=== PATIENT | male | born 1940 | race Caucasian/White ===

== ENCOUNTER 2018-05-13 10:17 | Inpatient (IN) | payer OTHER ==
[~2018-05-13] VITALS: Ht 162.6 cm; Wt 87.0 kg
[~2018-05-13 10:17] MED LIST: SODIUM CHLORIDE 0.9% 1000ML 1,000 ML IV SCH
--- NOTE | 2018-05-13 10:34 | DIAGNOSTIC IMAGING REPORT ---
HEAD WITHOUT CONTRAST (CT) CLINICAL HISTORY: 77 years-old Male presenting with STROKE SYMPTOMS. TECHNIQUE: Multidetector CT imaging of the head was performed without the use of intravenous contrast. IV contrast: None. A dose lowering technique was used consistent with the principles of ALARA (as low as reasonably achievable). COMPARISON: None. CT DOSE (mGy.cm): The estimated cumulative dose is 614.27 mGy.cm. FINDINGS: Orthodontic Technician Assistant topogram: Unremarkable. Ventricles and sulci normal in size. Brain parenchyma normal in appearance with preserved weinstein-white differentiation. No mass effect or midline shift. No hemorrhage or acute territorial infarct. No extra-axial fluid collection. Paranasal sinuses and mastoid air cells clear. Calvarium intact. IMPRESSION: 1. No acute intracranial abnormality. Electronically signed by: Tra Mendes M.D. 05/13/2018 10:33 AM Dictated Date/Time: 05/13/2018 10:31 AM
[2018-05-13 10:48] LABS: BASO % 0.3 %; BASO ABS # 0.02 K/uL (0-0.2); EOS % 0.2 %; EOS ABS # 0.01 K/uL (0-0.5); HEMATOCRIT 42.8 % (42-52); HEMOGLOBIN 14.2 g/dL (14.0-18.0); IG# 0.04 K/uL (0.00-0.02); LYMPH % 16.3 %; LYMPH ABS # 1.03 K/uL (1.2-3.4); MEAN CELL VOLUME 90.9 fL (80-100); MEAN CORPUSCULAR HEMOGLOBIN 30.1 pg (25-34); MEAN CORPUSCULAR HGB CONC 33.2 g/dl (32-36); MEAN PLATELET VOLUME 9.9 fL (7.4-10.4); MONO % 6.7 %; MONO ABS # 0.42 K/uL (0.11-0.59); NEUT % 75.9 %; NEUT ABS # 4.78 K/uL (1.4-6.5); PLATELET COUNT 232 K/uL (130-400); RED CELL DISTRIBUTION WIDTH CV 15.3 % (11.5-14.5); RED CELL DISTRIBUTION WIDTH SD 51.5 fL (36.4-46.3)
[2018-05-13 10:58] LABS: INR 0.9 (0.9-1.1); PTT PATIENT 26.9 SECONDS (21.0-31.0)
[2018-05-13] MEDS ORDERED: SET 2260-0500 IV ONE (11:00)
[2018-05-13] MEDS ORDERED: ALTEPLASE, RECOMBINANT INJ 72 MG in EMPTY BAG 0 ML IV ONE (11:00)
[2018-05-13] MEDS ORDERED: ALTEPLASE, RECOMBINANT INJ 8 MG in SYRINGE 0 ML IV ONE (11:00)
[2018-05-13] MEDS ORDERED: ASPIRIN 81 MG CHEW PO STA (11:09)
[2018-05-13 11:14] LABS: BLOOD UREA NITROGEN 17 mg/dl (7-18); CALCIUM 8.7 mg/dl (8.5-10.1); CARBON DIOXIDE 22 mmol/L (21-32); CKMB 6.3 ng/ml (0.5-3.6); CREATININE 1.21 mg/dl (0.60-1.40); GLUCOSE 172 mg/dl (70-99); POTASSIUM 4.4 mmol/L (3.5-5.1); SODIUM 139 mmol/L (136-145)
--- NOTE | 2018-05-13 11:27 | DIAGNOSTIC IMAGING REPORT ---
SINGLE VIEW CHEST CLINICAL HISTORY: Strokelike symptoms. FINDINGS: An AP, portable, upright chest radiograph is obtained. No prior studies are available for comparison at the time of dictation. The examination is degraded by portable technique and patient rotation. The heart is mildly enlarged and there is atherosclerotic calcification of the thoracic aorta. The pulmonary vasculature is noncongested. Patchy airspace consolidation is seen at both lung bases. No large pleural effusion or pneumothorax is seen. The skeletal structures are osteopenic. Arthritic change is noted in the shoulders and thoracic spine. IMPRESSION: 1. Cardiomegaly without radiographic evidence of congestive failure. 2. Patchy airspace consolidation is seen at both lung bases. This likely represents pneumonia/aspiration pneumonitis. Clinical correlation will be required and radiographic follow-up to resolution is recommended. Electronically signed by: Sergio Bui M.D. 05/13/2018 11:25 AM Dictated Date/Time: 05/13/2018 11:24 AM
[2018-05-13] MEDS ORDERED: INSU100I23 (11:34)
[2018-05-13] MEDS ORDERED: TAMS0.4C38 PO (11:37)
[2018-05-13] MEDS ORDERED: METF-841 PO (11:37)
[2018-05-13] MEDS ORDERED: ACAR50TA3 PO (11:37)
[2018-05-13] MEDS ORDERED: PIOG1TAB20 PO (11:37)
[2018-05-13 12:15] VITALS: O2SAT 95; Ht 162.6 cm; Wt 87.0 kg
[2018-05-13] MEDS ORDERED: PHARMACIST DISCHARGE MED REC CONSULT PRN (12:15)
--- NOTE | 2018-05-13 12:17 | History and Physical ---
History & Physical Date & Time of Service: May 13, 2018 at 12:17 Chief Complaint: Stroke Symptoms Primary Care Physician: No Doctor, Assigned History of Present Illness Source: patient, hospital records This is a 77yo M with a PMH of DM II and BPH who presents with confusion and altered mental status. Patient was in normal state of health this morning and commuted from [place] to [facility] without a problem. Suddenly, around 8:30 AM, patient felt confused and dizzy with slurred speech. Coworker called 911 and patient was evaluated in the ED with tele-stroke. Was initially found to have slight left-sided facial droop and right arm weakness but R arm weakness resolved. Per discussion with tele-stroke, order for tPa was discontinued and patient was given a full dose aspirin. Denies any lightheadedness, visual changes, difficulty swallowing, palpitations, chest pain , shortness of breath, motor weakness or difficulty with ambulation. Denies any personal history of stroke, heart disease or DVT/PE. Follows with Dr. Menchaca of [place]. Past Medical/Surgical History Medical Problems: (1) BPH (benign prostatic hyperplasia) Status: Chronic (2) Diabetes mellitus, type II Status: Chronic Social History Smoking Status: Never Smoker Alcohol Use: none Housing status: lives with significant other Occupational Status: employed Allergies Coded Allergies: Penicillins (Verified Allergy, Unknown, RASH, 05/13/18) Home Medications Scheduled Acarbose (Precose), 50 MG PO HS Insulin Glargine (Basaglar Kwikpen), 14 UNITS HS Metformin HCl (Metformin HCl ER), 1,000 MG PO BID Pioglitazone Hcl (Pioglitazone Hcl), 45 MG PO DAILY Tamsulosin Hcl (Flomax), 0.4 MG PO DAILY Review of Systems Ten systems reviewed and negative except as noted in the HPI. Physical Exam Vital Signs Date Time Temp Pulse Resp B/P (MAP) Pulse Ox O2 Delivery O2 Flow Rate FiO2 05/13/18 12:00 150/85 05/13/18 11:52 75 20 95 Room Air 05/13/18 11:31 137/79 05/13/18 11:22 84 21 94 Room Air 05/13/18 11:17 77 16 97 Room Air 05/13/18 11:02 165/80 05/13/18 10:47 73 16 95 Room Air 05/13/18 10:45 158/83 05/13/18 10:41 148/92 05/13/18 10:36 Room Air 05/13/18 10:34 82 05/13/18 10:27 162/90 05/13/18 10:17 36.6 75 20 162/90 94 Room Air General Appearance: WD/WN, no apparent distress, + mild distress (tearful intermittently) Head: normocephalic, atraumatic Eyes: normal inspection, PERRL, sclerae normal ENT: normal ENT inspection, hearing grossly normal, pharynx normal (moist mucous membranes ) Neck: supple, thyroid normal, trachea midline Respiratory/Chest: chest non-tender, lungs clear, normal breath sounds, no respiratory distress, no accessory muscle use Cardiovascular: regular rate, rhythm, no murmur, normal peripheral pulses Abdomen/GI: non tender, soft, no organomegaly Extremities/Musculoskelatal: normal inspection, no calf tenderness, no pedal edema, normal range of motion 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, no motor/sensory deficits, alert, normal mood/affect, oriented x 3, + facial droop (Slight left sided facial droop ), + pertinent finding (Expressive aphasia) Skin: normal color, warm/dry, no rash Diagnostics Laboratory Results Results Past 24 Hours Test 05/13/18 10:12 05/13/18 10:26 05/13/18 10:34 05/13/18 12:03 Range/Units White Blood Count 6.30 4.8-10.8 K/uL Red Blood Count 4.71 4.7-6.1 M/uL Hemoglobin 14.2 14.0-18.0 g/dL Hematocrit 42.8 42-52 % Mean Corpuscular Volume 90.9 80-100 fL Mean Corpuscular Hemoglobin 30.1 25-34 pg Mean Corpuscular Hemoglobin Concent 33.2 32-36 g/dl Platelet Count 232 130-400 K/uL Mean Platelet Volume 9.9 7.4-10.4 fL Neutrophils (%) (Auto) 75.9 % Lymphocytes (%) (Auto) 16.3 % Monocytes (%) (Auto) 6.7 % Eosinophils (%) (Auto) 0.2 % Basophils (%) (Auto) 0.3 % Neutrophils # (Auto) 4.78 1.4-6.5 K/uL Lymphocytes # (Auto) 1.03 1.2-3.4 K/uL Monocytes # (Auto) 0.42 0.11-0.59 K/uL Eosinophils # (Auto) 0.01 0-0.5 K/uL Basophils # (Auto) 0.02 0-0.2 K/uL RDW Standard Deviation 51.5 36.4-46.3 fL RDW Coefficient of Variation 15.3 11.5-14.5 % Immature Granulocyte % (Auto) 0.6 % Immature Granulocyte # (Auto) 0.04 0.00-0.02 K/uL Prothrombin Time 9.8 9.0-12.0 SECONDS Prothromb Time International Ratio 0.9 0.9-1.1 Activated Partial Thromboplast Time 26.9 21.0-31.0 SECONDS Partial Thromboplastin Ratio 1.0 Sodium Level 139 136-145 mmol/L Potassium Level 4.4 3.5-5.1 mmol/L Chloride Level 107 98-107 mmol/L Carbon Dioxide Level 22 21-32 mmol/L Anion Gap 10.0 3-11 mmol/L Blood Urea Nitrogen 17 7-18 mg/dl Creatinine 1.21 0.60-1.40 mg/dl Est Creatinine Clear Calc Drug Dose 51.7 ml/min Estimated GFR () 66.5 Estimated GFR (Non- 57.4 BUN/Creatinine Ratio 13.7 10-20 Random Glucose 172 70-99 mg/dl Calcium Level 8.7 8.5-10.1 mg/dl Magnesium Level 2.2 1.8-2.4 mg/dl Total Creatine Kinase 349 39-308 U/L Creatine Kinase MB 6.3 0.5-3.6 ng/ml Creatine Kinase MB Ratio 1.8 0-3.0 Troponin I < 0.015 0-0.045 ng/ml Bedside Glucose 149 70-99 mg/dl Diagnostic Radiology Head CT: IMPRESSION: 1. No acute intracranial abnormality. CXR: IMPRESSION: 1. Cardiomegaly without radiographic evidence of congestive failure. 2. Patchy airspace consolidation is seen at both lung bases. This likely represents pneumonia/aspiration pneumonitis. Clinical correlation will be required and radiographic follow-up to resolution is recommended. EKG Normal sinus rhythm at 81 bpm. Left bundle branch block. No prior EKG available Impression Assessment and Plan This is a 77yo M with a PMH of DM II and BPH who presents with confusion and altered mental status. Stroke like symptoms: -Evaluated by telestroke -- no tPa recommended -CT head without abnormalities -Given full dose aspirin in ED -Given Lipitor 40mg -MRI brain combo, echo w/ bubble study ordered -Discussed with neuro - CTA head/neck recommended -Initiate daily aspirin, plavix -Neuro checks -PT, OT, speech therapy evaluations -Fasting lipid profile in AM DM II: -A1c of 6.9 today -Hold home agents -SSI while in-patient -Lantus 5u BID -BSG AC HS BPH: -Continue Flomax DVT Ppx: Heparin SQ Code status: FULL PCP: Bernarda ([place]) Dispo: Admitted to telemetry. Discharge ordered place per stroke set. Patient seen in collaboration with Dr. Quintana. Please see addendum. Resuscitation Status VTE Prophylaxis Will order VTE Prophylaxis: Yes
[2018-05-13] MEDS ORDERED: CARBOHYDRATES FOR HYPOGLYCEMIA PO PRN (12:45)
[2018-05-13] MEDS ORDERED: GLUCOSE 10 TABS/TUBE PO PRN (12:45)
[2018-05-13] MEDS ORDERED: DEXTROSE 50% 50 ML SYR IV PRN (12:45)
[2018-05-13] MEDS ORDERED: GLUCAGON FOR INJ 1 MG VIAL SQ PRN (12:45)
[2018-05-13] MEDS ORDERED: PATIENT'S ALLERGY INFO NEEDS ENTERED SCH (12:45)
[2018-05-13] MEDS ORDERED: GLUCOSE 40% GEL 15 GM TUBE PO PRN (12:45)
[2018-05-13 12:49] LABS: HEMOGLOBIN A1C 6.9 % (4.5-5.6)
[2018-05-13 13:00] VITALS: BP 154/74; PULSE 71; TEMP 36.7; O2SAT 97
[2018-05-13] MEDS ORDERED: OPTIRAY 320 IV PRN (13:00)
[2018-05-13] MEDS ORDERED: CLOPIDOGREL BISULFATE 75 MG TAB PO ONE (13:00)
[2018-05-13 13:04] LABS: ALBUMIN 3.6 gm/dl (3.4-5.0); ALKALINE PHOSPHATASE 95 U/L (45-117); ALT/SGPT 26 U/L (12-78); AST/SGOT 27 U/L (15-37); TOTAL PROTEIN 7.1 gm/dl (6.4-8.2)
[2018-05-13] MEDS ORDERED: SODIUM CHLORIDE 0.9% 1000ML 1,000 ML IV SCH (13:45)
--- NOTE | 2018-05-13 13:57 | History and Physical ---
History & Physical Date of Service May 13, 2018. History & Physical This is a 77 year old male with a past medical history of insulin dependent DM2 and BPH - presents with confusion, altered mental status. 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 He was seen by his boss and ambulance was immediately called. As per ER notes, he had a L sided facial droop. During my exam, the facial droop resolved. During exam; he is having expressive aphasia, difficulty recalling events. He is tearful during exam and emotionally labile. No motor weakness on exam. Plan: Stroke Like Symptoms - Head CT negative on admission - stroke alert called; no tPA recommended - started on aspirin and Plavix - giving Lipitor 40mg - plan for further imagining, CTA head/neck as per neurology - MRI brain, echo ordered - check fasting lipid profile in AM Underlying CKD? - unsure if patient has kidney disease - with his diabetes, this is possibly chronic kidney disease - giving IVFs, monitor for fluid overload, monitor kidney function Insulin Dependent DM2 - well controlled, Ha1c is 6.9% - hold oral agents - change his home dose of Lantus 14 units HS to 5 units BID - insulin sliding scale - prior to discharge, patient should be on an KATHRYN-I BPH - Flomax DVT ppx - subq heparin FULL CODE
[2018-05-13] MEDS ORDERED: PNEUMOCOCCAL ADMINISTRATION CHARGE ONE (14:45)
[2018-05-13] MEDS ORDERED: PNEUMOCOCCAL POLYSACCHARIDES 25 MCG/0.5 ML VIAL/SYR IM. ONE (14:45)
--- NOTE | 2018-05-13 14:50 | ECHOCARDIOGRAM REPORT ---
*NOTICE TO RECEIVING CONSTITUTION PARTY AGENCY This information is strictly Confidential and protected under [place] law. [place] law prohibits you from making any further disclosure of this information unless further disclosure is expressly permitted by the written consent of the person to whom it pertains or is authorized by law. A general authorization for the release of medical or other information is not sufficient for this purpose. Hospital accepts no responsibility if the information is made available to any other person, INCLUDING THE PATIENT. Interpretation Summary * Name: MEGHAN RIVAS Study Date: 05/13/2018 01:00 PM BP: 150/85 mmHg * Patient Location: .2E\S\E212\S\1 HR: 73 * : 1940 (M/d/yyyy) Gender: Male Height: 64 in * Age: 77 yrs Ethnicity: CA Weight: 198 lb * Ordering Physician: Kourtney Hubbard * Referring Physician: Self, Referred * Performed By: Enid Wylie [facility] * * Reason For Study: CEREBRAL ISCHEMIA / EMBOLUS * BSA: 1.9 m2 * -- Conclusions -- * The left ventricle is normal in size. * There is mild concentric left ventricular hypertrophy. * The basal septum is thickened and angulated consistent with sigmoid septum. * Left ventricular systolic function is normal. * Grade I diastolic dysfunction, (abnormal relaxation pattern). * Septal motion is consistent with conduction abnormality. * There is akinesis and thinning of the basal inferior posterior wall with all other wall segments arsenio normally * Ejection Fraction = 50-55%. * Aortic valve sclerosis mild, without significant aortic valvular stenosis. * Trace aortic regurgitation. * There is trace mitral regurgitation. * The interatrial septum is intact with no evidence for an atrial septal defect. * Injection of contrast documented no interatrial shunt. Procedure Details * A complete two-dimensional transthoracic echocardiogram was performed (2D, M-mode, Doppler and color flow Doppler). * A saline contrast injection was performed to assess for cardiac shunting. * The injection was performed through an intravenous line in the right arm. * The attending nurse who injected the saline contrast was BRISEIDA MASON RN. * A total of 20 cc of agitated saline was given. Left Ventricle * The left ventricle is normal in size. * There is mild concentric left ventricular hypertrophy. * The basal septum is thickened and angulated consistent with sigmoid septum. * Left ventricular systolic function is normal. * Ejection Fraction = 50-55%. * Septal motion is consistent with conduction abnormality. * There is akinesis and thinning of the basal inferior posterior wall with all other wall segments arsenio normally Right Ventricle * The right ventricle is normal in size and function. Atria * The left atrial size is normal. * Right atrial size is normal. * The interatrial septum is intact with no evidence for an atrial septal defect. * Injection of contrast documented no interatrial shunt. Mitral Valve * The mitral valve anatomy is normal. * There is no mitral valve stenosis. * There is trace mitral regurgitation. Tricuspid Valve * The tricuspid valve anatomy is normal. * There is no tricuspid stenosis. * There is trace tricuspid regurgitation. * Doppler findings do not suggest pulmonary hypertension. Aortic Valve * The aortic valve is trileaflet. * Aortic valve sclerosis mild, without significant aortic valvular stenosis. * No hemodynamically significant valvular aortic stenosis. * Trace aortic regurgitation. Pulmonic Valve * The pulmonic valve is not well visualized. Great Vessels * The aortic root is normal size. Pericardium/Pleural * There is no pericardial effusion. Great Vessels * Normal inferior vena cava diameter and respiratory variation suggests normal central venous pressure. Left Ventricular Diastolic Function * Grade I diastolic dysfunction, (abnormal relaxation pattern). MMode 2D Measurements and Calculations IVSd 1.7 cm IVSs 1.6 cm LVIDd 4.6 cm LVIDs 3.6 cm LVPWd 1.5 cm LVPWs 2.0 cm IVS/LVPW 1.1 FS 21.8 % EDV(Teich) 96.6 ml ESV(Teich) 54.0 ml EF(Teich) 44.2 % EDV(cubed) 96.4 ml ESV(cubed) 46.1 ml EF(cubed) 52.1 % % IVS thick -9.97 % % LVPW thick 33.3 % LV mass(C)d 319.9 grams LV mass(C)dI 164.3 grams/m\S\2 LV mass(C)s 268.2 grams LV mass(C)sI 137.7 grams/m\S\2 SV(Teich) 42.7 ml SI(Teich) 21.9 ml/m\S\2 SV(cubed) 50.3 ml SI(cubed) 25.8 ml/m\S\2 Ao root diam 3.0 cm Ao root area 6.9 cm\S\2 LA dimension 3.9 cm LA/Ao 1.3 LVOT diam 2.0 cm LVOT area 3.2 cm\S\2 LVAd ap4 35.9 cm\S\2 LVLd ap4 9.0 cm EDV(MOD-sp4) 119.6 ml EDV(sp4-el) 121.3 ml LVAs ap4 23.2 cm\S\2 LVLs ap4 8.0 cm ESV(MOD-sp4) 57.9 ml ESV(sp4-el) 57.4 ml EF(MOD-sp4) 51.6 % EF(sp4-el) 52.7 % LVAd ap2 37.7 cm\S\2 LVLd ap2 8.9 cm EDV(MOD-sp2) 129.7 ml EDV(sp2-el) 135.3 ml LVAs ap2 22.3 cm\S\2 LVLs ap2 7.0 cm ESV(MOD-sp2) 61.6 ml ESV(sp2-el) 60.4 ml EF(MOD-sp2) 52.5 % EF(sp2-el) 55.4 % LVLd %diff -1.40 % EDV(MOD-bp) 121.4 ml LVLs %diff -14.68 % ESV(MOD-bp) 63.3 ml EF(MOD-bp) 47.9 % SV(MOD-sp4) 61.7 ml SI(MOD-sp4) 31.7 ml/m\S\2 SV(MOD-sp2) 68.1 ml SI(MOD-sp2) 35.0 ml/m\S\2 SV(MOD-bp) 58.1 ml SI(MOD-bp) 29.9 ml/m\S\2 SV(sp4-el) 64.0 ml SI(sp4-el) 32.8 ml/m\S\2 SV(sp2-el) 74.9 ml SI(sp2-el) 38.5 ml/m\S\2 Doppler Measurements and Calculations MV E max ryann 64.7 cm/sec MV A max ryann 104.3 cm/sec MV E/A 0.62 MV P1/2t max ryann 77.0 cm/sec MV P1/2t 58.2 msec MVA(P1/2t) 3.8 cm\S\2 MV dec slope 387.8 cm/sec\S\2 MV dec time 0.19 sec AI max ryann 452.0 cm/sec AI max PG 81.7 mmHg AI dec slope 241.2 cm/sec\S\2 AI P1/2t 548.9 msec
[2018-05-13] MEDS: HEPARIN SOD 5000 UNIT/0.5 ML CARP SQ SCH ×2 (15:02→21:19)
[2018-05-13] MEDS: ATORVASTATIN 40 MG TAB PO SCH (15:21)
[2018-05-13 16:15] VITALS: BP 148/76; PULSE 74; TEMP 37.1; O2SAT 95
[2018-05-13] MEDS: INSULIN ASPART 100 UNITS/ML 3 ML PEN SC SCH ×2 (17:02→20:57)
--- NOTE | 2018-05-13 17:45 | EMERGENCY ROOM VISIT NOTE ---
History Report prepared by Yissel: Candy Monk Under the Supervision of: Dr. Fareed Murguia M.D. First contact with patient: 10:12 Stated Complaint: STROKE SYMPTOMS History of Present Illness The patient is a 77 year old male who presents to the Emergency Room with complaints of sudden stroke symptoms starting 2 hours ago. The patient states that he was on his way to work for [employer] to [employer] when he all of a sudden noticed right sided weakness. He reports that he felt like he had difficulty getting his words out. He reports that his coworker called 911 at this time. He states that he was fine last night and this morning when he got up. He states that he had no issues driving until he felt weak. The patient denies a history of strokes, heart attacks, and cancer. Pt denies LOC, headache, fevers, chills, diaphoresis, visual changes, neck pain , chest pain, breathing difficulties, nausea, vomiting, abdominal pain, back pain, melena, hematochezia, urinary symptoms, numbness, lymphadenopathy, rash, or other complaints. Source of History: patient Onset: 2 hours ago Position: other (generalized) Quality: other (stroke symptoms) Timing: other (sudden) Associated Symptoms: + weakness Note: The patient complains of difficulty getting his words out. Review of Systems See HPI for pertinent positives and negatives. A total of ten systems were reviewed and were otherwise negative. Past Medical & Surgical Medical Problems: (1) BPH (benign prostatic hyperplasia) (2) Diabetes mellitus, type II Family History No pertinent family history Social History Marital Status: Housing Status: lives with significant other Occupation Status: employed Current/Historical Medications Scheduled Acarbose (Precose), 50 MG PO HS Insulin Glargine (Basaglar Kwikpen), 14 UNITS HS Metformin HCl (Metformin HCl ER), 1,000 MG PO BID Pioglitazone Hcl (Pioglitazone Hcl), 45 MG PO DAILY Tamsulosin Hcl (Flomax), 0.4 MG PO DAILY Allergies Coded Allergies: Penicillins (Verified Allergy, Unknown, RASH, 05/13/18) Physical Exam Vital Signs Date Time Temp Pulse Resp B/P (MAP) Pulse Ox O2 Delivery O2 Flow Rate FiO2 05/13/18 12:00 150/85 05/13/18 11:52 75 20 95 Room Air 05/13/18 11:31 137/79 05/13/18 11:22 84 21 94 Room Air 05/13/18 11:17 77 16 97 Room Air 05/13/18 11:02 165/80 05/13/18 10:47 73 16 95 Room Air 05/13/18 10:45 158/83 05/13/18 10:41 148/92 05/13/18 10:36 Room Air 05/13/18 10:34 82 05/13/18 10:27 162/90 05/13/18 10:17 36.6 75 20 162/90 94 Room Air Physical Exam GENERAL: Awake, alert, tired appearing, no distress HENT: Normocephalic, atraumatic. TM's normal. Oropharynx unremarkable. EYES: PERRL. EOMI. Normal conjunctiva. Sclera non-icteric. NECK: Supple. No nuchal rigidity. FROM. No bruit. RESPIRATORY: Breath sounds equal. No wheezes. No rhonchi. Normal respiratory effort. CARDIAC: Normal rate. Regular rhythm. No murmurs. No rubs. No JVD. GI: Soft, non distended. No tenderness to palpation. No rebound or guarding. No masses. RECTAL: Deferred. MUSCULOSKELETAL: Unremarkable. 1+ lower extremity edema. No discoloration. Gross motor strength symmetric. NEURO: Cranial nerves 2-12 grossly intact. Normal sensorium. No sensory deficits noted. Mild dysarthria. Weakness in the right arm, but no pronator drift. Slight left facial droop. SKIN: No rash or jaundice noted. LYMPH: No adenopathy. Medical Decision & Procedures ER Provider Diagnostic Interpretation: Radiology results as stated below per my review and radiologist interpretation: SINGLE VIEW CHEST CLINICAL HISTORY: Strokelike symptoms. FINDINGS: An AP, portable, upright chest radiograph is obtained. No prior studies are available for comparison at the time of dictation. The examination is degraded by portable technique and patient rotation. The heart is mildly enlarged and there is atherosclerotic calcification of the thoracic aorta. The pulmonary vasculature is noncongested. Patchy airspace consolidation is seen at both lung bases. No large pleural effusion or pneumothorax is seen. The skeletal structures are osteopenic. Arthritic change is noted in the shoulders and thoracic spine. IMPRESSION: 1. Cardiomegaly without radiographic evidence of congestive failure. 2. Patchy airspace consolidation is seen at both lung bases. This likely represents pneumonia/aspiration pneumonitis. Clinical correlation will be required and radiographic follow-up to resolution is recommended. Electronically signed by: Sergio Bui M.D. 05/13/2018 11:25 AM Dictated Date/Time: 05/13/2018 11:24 AM HEAD WITHOUT CONTRAST (CT) CLINICAL HISTORY: 77 years-old Male presenting with STROKE SYMPTOMS. TECHNIQUE: Multidetector CT imaging of the head was performed without the use of intravenous contrast. IV contrast: None. A dose lowering technique was used consistent with the principles of ALARA (as low as reasonably achievable). COMPARISON: None. CT DOSE (mGy.cm): The estimated cumulative dose is 614.27 mGy.cm. FINDINGS: Disability Services Coordinator topogram: Unremarkable. Ventricles and sulci normal in size. Brain parenchyma normal in appearance with preserved weinstein-white differentiation. No mass effect or midline shift. No hemorrhage or acute territorial infarct. No extra-axial fluid collection. Paranasal sinuses and mastoid air cells clear. Calvarium intact. IMPRESSION: 1. No acute intracranial abnormality. Electronically signed by: Tra Mendes M.D. 05/13/2018 10:33 AM Dictated Date/Time: 05/13/2018 10:31 AM Laboratory Results 05/13/18 10:26 Red Blood Count 4.71, Mean Corpuscular Volume 90.9, Mean Corpuscular Hemoglobin 30.1, Mean Corpuscular Hemoglobin Concent 33.2, Mean Platelet Volume 9.9, Neutrophils (%) (Auto) 75.9, Lymphocytes (%) (Auto) 16.3, Monocytes (%) (Auto) 6.7, Eosinophils (%) (Auto) 0.2, Basophils (%) (Auto) 0.3, Neutrophils # (Auto) 4.78, Lymphocytes # (Auto) 1.03, Monocytes # (Auto) 0.42, Eosinophils # (Auto) 0.01, Basophils # (Auto) 0.02 05/13/18 10:26 Test 05/13/18 10:26 White Blood Count 6.30 K/uL (4.8-10.8) Red Blood Count 4.71 M/uL (4.7-6.1) Hemoglobin 14.2 g/dL (14.0-18.0) Hematocrit 42.8 % (42-52) Mean Corpuscular Volume 90.9 fL (80-100) Mean Corpuscular Hemoglobin 30.1 pg (25-34) Mean Corpuscular Hemoglobin Concent 33.2 g/dl (32-36) Platelet Count 232 K/uL (130-400) Mean Platelet Volume 9.9 fL (7.4-10.4) Neutrophils (%) (Auto) 75.9 % Lymphocytes (%) (Auto) 16.3 % Monocytes (%) (Auto) 6.7 % Eosinophils (%) (Auto) 0.2 % Basophils (%) (Auto) 0.3 % Neutrophils # (Auto) 4.78 K/uL (1.4-6.5) Lymphocytes # (Auto) 1.03 K/uL (1.2-3.4) Monocytes # (Auto) 0.42 K/uL (0.11-0.59) Eosinophils # (Auto) 0.01 K/uL (0-0.5) Basophils # (Auto) 0.02 K/uL (0-0.2) RDW Standard Deviation 51.5 fL (36.4-46.3) RDW Coefficient of Variation 15.3 % (11.5-14.5) Immature Granulocyte % (Auto) 0.6 % Immature Granulocyte # (Auto) 0.04 K/uL (0.00-0.02) Prothrombin Time 9.8 SECONDS (9.0-12.0) Prothromb Time International Ratio 0.9 (0.9-1.1) Activated Partial Thromboplast Time 26.9 SECONDS (21.0-31.0) Partial Thromboplastin Ratio 1.0 Anion Gap 10.0 mmol/L (3-11) Est Creatinine Clear Calc Drug Dose 51.7 ml/min Estimated GFR () 66.5 Estimated GFR (Non- 57.4 BUN/Creatinine Ratio 13.7 (10-20) Estimated Average Glucose 151 mg/dl Hemoglobin A1c 6.9 % (4.5-5.6) Calcium Level 8.7 mg/dl (8.5-10.1) Magnesium Level 2.2 mg/dl (1.8-2.4) Total Bilirubin 0.4 mg/dl (0.2-1) Direct Bilirubin < 0.1 mg/dl (0-0.2) Aspartate Amino Transf (AST/SGOT) 27 U/L (15-37) Alanine Aminotransferase (ALT/SGPT) 26 U/L (12-78) Alkaline Phosphatase 95 U/L (45-117) Total Creatine Kinase 349 U/L (39-308) Creatine Kinase MB 6.3 ng/ml (0.5-3.6) Creatine Kinase MB Ratio 1.8 (0-3.0) Troponin I < 0.015 ng/ml (0-0.045) Total Protein 7.1 gm/dl (6.4-8.2) Albumin 3.6 gm/dl (3.4-5.0) Laboratory results reviewed by me Medications Administered Medications (Trade) Dose Ordered Sig/Sloan Route Start Time Stop Time Status Last Admin Dose Admin Sodium Chloride 1,000 ml @ 50 mls/hr Q20H IV 05/13/18 10:12 05/13/18 13:20 DC 05/13/18 10:12 50 MLS/HR Aspirin (Aspirin Chew) 324 mg NOW STAT PO 05/13/18 11:09 05/13/18 11:10 DC 05/13/18 11:19 324 MG ECG Per My Interpretation Indication: weakness Rate (beats per minute): 81 Rhythm: normal sinus Findings: LBBB, other (no PVC, no PAC, no ST depression or elevation) Comparison ECG Date: no prior available ED Course 1012: Ordered NSS 1000 ml @ 50 mls/hr IV. 1017: The patient was evaluated in room B1. A complete history and physical exam was performed. 1028: I reevaluated the patient at this time. 1040: I discussed the patient's case with Dr. Luis Crisostomo Neurology. They will evaluate the patient through the tele-stroke. 1046: I ordered TPA to be premixed at this time. 1055: I reevaluated the patient and he is currently talking to Dr. Gracia through the tele-stroke. 1100: Ordered Alteplase Recombinant 8 mg/Syringe 8 ml @ 8 mls/min Protocol IV, Alteplase Recombinant 72 mg/ Empty Bag 72 mls @ 72 mls/hr Protocol IV. 1104: I reevaluated the patient and he is feeling better. He has an improvement of his symptoms. 1108: I discussed the patient's case with Dr. Luis Crisostomo Neurology. He recommends not giving TPA and being admitted for a stroke work up. He advises giving Aspirin at this time. 1109: Ordered Aspirin 324 mg PO. 1110: I updated the patient and his family at this time. 1117: Discussed the patient's case with JOSE Hilario Hospitalist. The patient will be evaluated for further treatment and disposition. Medical Decision Nursing notes reviewed and agree them. The patient's history was concerning for stroke like symptoms. Differential diagnosis: Etiologies such as metabolic, infection, hypo/hyperglycemia, electrolyte abnormalities, cardiac sources, intracerebral event, toxicologic, neurologic, as well as others were entertained. Physical examination: As above. ER treatment provided: IV Lock Normal saline hydration On reassessment the patient felt better. Symptoms resolved. Oral aspirin Diagnostics interpretation by me: ECG: No dysrhythmia. Left bundle branch block. The labs revealed an unremarkable CBC and chemistry panel. Imaging studies: Chest x-ray and CT scan as above Consultation: A consultation was placed with her CV tele-stroke. The patient was evaluated. Given the history and time of onset on initial consultation they asked for TPA to be mixed and this was done. By time the evaluation was completed the patient 's symptoms resolved. TPA was not recommended. A consultation was placed with the hospitalist. The case was discussed and diagnostics were reviewed. The patient was evaluated in the ER for further treatment. Medication Reconcilliation Current Medication List: was personally reviewed by me Blood Pressure Screening Patient's blood pressure: Elevated blood pressure Will be further monitored by the hospitalist. Consults Time Called: 1030 Consulting Physician: Dr. Luis Crisostomo Neurology Returned Call: 1040 I discussed the patient's case with Dr. Luis Crisostomo. They will evaluate the patient through the tele-stroke. Additional Consults: Time Called: 1106 Consulted Physician: Dr. Luis Crisostomo Neurology Returned Call: 1108 Additional Comments: I discussed the patient's case with Dr. Luis Crisostomo. He recommends not giving TPA and being admitted for a stroke work up. He advises giving Aspirin at this time. Time Called: 1114 Consulted Physician: JOSE Hilario Hospitalist Returned Call: 1117 Additional Comments: Discussed the patient's case with Kourtney Stevie, PA-C - [facility]. The patient will be evaluated for further treatment and disposition. Impression Primary Impression: Stroke-like symptoms Additional Impressions: Dysarthria Right sided weakness Scribe Attestation The scribe's documentation has been prepared under my direction and personally reviewed by me in its entirety. I confirm that the note above accurately reflects all work, treatment, procedures, and medical decision making performed by me. Departure Information Dispostion Being Evaluated By Hospitalist Stroke History Time Last Known Well 2 hours ago Stroke t-PA Criteria Reviewed Does NOT meet criteria for t-PA Reason t-PA Not Given Treatment not indicated Problem Qualifiers
--- NOTE | 2018-05-13 19:01 | DIAGNOSTIC IMAGING REPORT ---
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 There are several scattered foci of restricted diffusion about the left cerebral hemisphere with punctate focus involving the centrum semiovale left frontal lobe and several subcentimeter foci about the left parietal lobe measuring up to 1.7 x 0.8 cm on image 14 series 4. Additional foci are also seen involving the posterior left temporal lobe with cortically based foci measuring up to 2.0 cm. Mildly increased T2/FLAIR signal within these distributions without significant mass effect, midline shift, intracranial hemorrhage or hydrocephalus. Mild involutional changes with suggested mild to moderate chronic microvascular ischemic changes. No intracranial mass identified. Midline structures including the corpus callosum, brainstem, optic chiasm, pituitary and pineal glands are unremarkable. No cerebellar tonsillar herniation. Degenerative changes about the cervical spine noted. There is no abnormal intra-axial or extra-axial enhancement identified. 3 mm focus of intrinsic increased T1 signal about the left lentiform nucleus on image 14 series 6 is likely of no clinical significance. Remote lacunar infarct about the left thalamus. Flow voids appear patent. Prior bilateral cataract repair. Hypoplasia of the frontal sinuses. Mild thickening of the ethmoid air cells and right maxillary sinus. Trace bilateral mastoid effusions. Soft tissues and skull are unremarkable. IMPRESSION: 1. Multiple small areas of acute to subacute infarction about the left cerebral hemisphere are noted predominantly involving the watershed distribution of the posterior left parietal lobe and extending into the posterior left temporal lobe. There is mild associated cytotoxic edema without significant mass effect, midline shift, hydrocephalus or definite intracranial hemorrhage. 2. No abnormal enhancement. 3. Mild age-related atrophy with chronic microvascular ischemic changes. The above report was generated using voice recognition software. It may contain grammatical, syntax or spelling errors. Electronically signed by: Wagner Mckinney M.D. 05/13/2018 7:00 PM Dictated Date/Time: 05/13/2018 6:47 PM
[2018-05-13 19:39] VITALS: BP 149/81; PULSE 70; TEMP 36.8; O2SAT 98
[2018-05-13] MEDS ORDERED: INSULIN GLARGINE SOLOSTAR 100 UNITS/ML 3 ML PEN SC SCH (21:00)
[2018-05-13] MEDS: INSULIN GLARGINE SOLOSTAR 100 UNITS/ML 3 ML PEN SC SCH (21:19)
--- NOTE | 2018-05-13 22:21 | DIAGNOSTIC IMAGING REPORT ---
NECK ANGIO WITH CONTRAST, ANGIOGRAPHY HEAD COMBO CLINICAL HISTORY: 77 years-old Male with presents with acute slurred speech and confusion. Multiple areas of acute subacute infarction involving the left cerebral hemisphere discussed on brain MRI of same day COMPARISON STUDY: Brain MRI of same day TECHNIQUE: Following the IV administration of 91 of Optiray 320, CT angiogram of the head and neck was performed from the aortic arch to the skull apex. Images are reviewed in the axial, sagittal, and coronal planes. Additional standard noncontrast head CT also obtained. 3-D MIPS images are created and assessed. IV contrast was administered without complication. All measurements were calculated based on NASCET criteria. A dose lowering technique was utilized adhering to the principles of ALARA. CT DOSE: 1108.29 mGy.cm FINDINGS: CT HEAD: Mild atrophy with chronic microvascular ischemic changes. No acute intracranial hemorrhage, midline shift, abnormal extra-axial collections or hydrocephalus. No evidence of territorial infarction. Subtle ill-defined cortically based low-attenuation about the left parietal lobe correlating with findings seen on comparison brain MRI of same day. No skull fracture. Hypoplasia of the frontal sinuses. Mastoid air cells and middle ear cavities are clear. The orbits and soft tissues are within normal limits. CTA HEAD AND NECK: Moderate mixed plaquing about the aortic arch. Imaged bilateral subclavian arteries are widely patent. The bilateral common carotid arteries are also widely patent. Moderate mixed plaquing about the bilateral carotid bulbs with less than 50% luminal narrowing on the right. Plaque formation of the left carotid bulb results in approximately 50% luminal narrowing. The remaining bilateral internal carotid arteries appear widely patent. Mild calcification about the clinoid and supraclinoid segments. The bilateral middle and anterior cerebral arteries are widely patent. The anterior communicating artery is also within normal limits and is widely patent. Tortuosity at the origin of the left vertebral artery. Tortuosity is also noted throughout various portions of the V2 segment left vertebral artery. The majority of the left vertebral artery terminates within the left PICA. The right vertebral artery is patent and also mildly tortuous. The basilar artery is diminutive in size and appears patent. There is origin of the bilateral posterior cerebral arteries. The cerebral venous sinuses appear patent. No aneurysm, high-grade stenosis, dissection or proximal branch occlusion. Partially imaged enlarged right peritracheal lymph node measures 2.1 x 1.3 cm. Partially calcified pleural-based nodule of the right upper lobe measures 5 mm on image 7 of series 4. Additional 6 mm pleural-based nodule seen on image 18 series 4. Thyroid is homogeneous. No pathologically enlarged lymph nodes are identified. Prior bilateral cataract repair. Multilevel degenerative changes about the cervical spine. Mastoid air cells and middle ear cavities are clear. Mild mucosal thickening of the ethmoid air cells and maxillary sinuses. Hypoplasia of the frontal sinuses IMPRESSION: 1. No aneurysm, dissection, high-grade stenosis or proximal branch occlusion. 2. No acute intracranial abnormality. 3. Moderate mixed plaquing about the bilateral carotid bulbs causing less than 50% luminal narrowing on the right and approximately 50% luminal narrowing on the left. 4. Developmentally diminutive vertebrobasilar system with origin of the bilateral posterior cerebral arteries. 5. Indeterminate pleural-based nodules about the right upper lobe measure up to 6 mm. These findings could be further evaluated with a nonemergent CT of the chest. The above report was generated using voice recognition software. It may contain grammatical, syntax or spelling errors. Electronically signed by: Wagner Mckinney M.D. 05/13/2018 10:19 PM Dictated Date/Time: 05/13/2018 10:03 PM
--- NOTE | 2018-05-13 22:56 | NEUROLOGY CONSULTATION ---
DATE OF CONSULTATION: 05/13/2018 REASON FOR CONSULTATION: Confusion. HISTORY OF PRESENT ILLNESS: A 77-year-old left handed male with diabetes and BPH who was in his usual state of health when commuting from work from [place] to [facility]. He arrived at work but felt vaguely unwell. He was trying to attempt to return to another building on site. His boss saw him in his truck, and he appeared confused. He appeared unable to drive his car, and by report, he was said to have a left facial droop. The patient has significant difficulty with the history. There is no clear episode of loss of consciousness. He denies any focal one-sided weakness or numbness. There is no headache. He has not been recently ill, had any head or neck trauma, chiropractic manipulation of the neck, chest pain, palpitations, shortness of breath, weight loss, medical or dental procedures. PAST MEDICAL HISTORY: BPH, diabetes. SOCIAL HISTORY: Nonsmoker, nondrinker. Lives with significant other. ALLERGIES: PENICILLIN. MEDICATIONS: Home medications are Precose, insulin glargine, metformin/pioglitazone, and Flomax. IMAGING: CT of the head shows no acute abnormality. Chest x-ray: Patchy airspace consolidation, both lungs. LABORATORY DATA: White count, H and H, and platelet count are normal. PT and PTT normal. Chemistry profile notable for a random blood sugar of 172, a CK of 349, with a troponin being negative, and urinalysis being negative. PHYSICAL EXAMINATION: VITAL SIGNS: Temperature 37.1, 74, 16, 148/76, and 95%. GENERAL: The patient is awake and alert. He is oriented to medical facility, not month but year, has some apparent right/left confusion, difficulty with naming, minor difficulty with repetitions, follows 3-step commands well. He is intermittently tearful. NECK: Supple. No carotid bruits. CARDIOVASCULAR: Heart has regular rate and rhythm. NEUROLOGIC: Pupils are equal, round, and reactive to light. Optic nerves unremarkable. Normal johansen, motility, facial sensation and symmetry. Speech is both mildly dysphasic and marginally dysarthric. Tongue midline. Motor 5/5. Rapid alternating movements may be marginally slow on the right. Reflexes are symmetric. Toes are downgoing. [id number] and [id number] are normal. Sensation is intact bilaterally to temperature and vibration. Vibration is present at the toes. Gait was not tested. IMPRESSION: Presumed patchy left middle cerebral artery infarction with primarily expressive aphasia. PLAN: MRI of brain, CTA if creatinine meets criteria, echo with bubble study, telemetric monitoring. If imaging were to be negative, I would recommend an EEG to rule out atypical seizure and postictal phenomenon. MTDD
[2018-05-14] VITALS (7 sets, daily range): BP systolic 122–155; BP diastolic 68–83; PULSE 71–95; TEMP 36.5–36.9; O2SAT 92–95
[2018-05-14] MEDS: HEPARIN SOD 5000 UNIT/0.5 ML CARP SQ SCH ×3 (06:50→21:00)
--- NOTE | 2018-05-14 07:07 | DIAGNOSTIC IMAGING REPORT ---
CHEST ONE VIEW PORTABLE CLINICAL HISTORY: Fever. Abnormal chest x-ray with probable pneumonia COMPARISON STUDY: 05/13/2018 FINDINGS: The heart is mildly enlarged. There is aortic tortuosity. There is been resolution of the previously identified by basilar opacities. This likely represented basilar edema as opposed to a pneumonia. There is no acute parenchymal consolidation. There are no pleural effusions.[ IMPRESSION: 1. No active disease in the chest 2. Mild cardiomegaly 3. Resolution of the previously identified bibasilar opacities Electronically signed by: Sharan Acosta M.D. 05/14/2018 7:05 AM Dictated Date/Time: 05/14/2018 7:04 AM
[2018-05-14 07:42] LABS: BASO % 0.3 %; BASO ABS # 0.02 K/uL (0-0.2); EOS % 1.2 %; EOS ABS # 0.08 K/uL (0-0.5); HEMATOCRIT 41.1 % (42-52); IG# 0.05 K/uL (0.00-0.02); LYMPH % 20.5 %; LYMPH ABS # 1.36 K/uL (1.2-3.4); MEAN CELL VOLUME 91.1 fL (80-100); MEAN CORPUSCULAR HGB CONC 34.1 g/dl (32-36); MEAN PLATELET VOLUME 10.3 fL (7.4-10.4); MONO % 6.3 %; MONO ABS # 0.42 K/uL (0.11-0.59); NEUT % 70.9 %; NEUT ABS # 4.69 K/uL (1.4-6.5); PLATELET COUNT 238 K/uL (130-400); RED CELL DISTRIBUTION WIDTH CV 15.3 % (11.5-14.5); RED CELL DISTRIBUTION WIDTH SD 51.5 fL (36.4-46.3); WHITE BLOOD COUNT 6.62 K/uL (4.8-10.8)
[2018-05-14 08:13] LABS: CALCIUM 8.6 mg/dl (8.5-10.1); CREATININE 0.99 mg/dl (0.60-1.40); POTASSIUM 3.9 mmol/L (3.5-5.1)
[2018-05-14] MEDS: TAMSULOSIN HCL 0.4 MG CAP PO SCH (08:17)
[2018-05-14] MEDS: CLOPIDOGREL BISULFATE 75 MG TAB PO SCH (08:17)
[2018-05-14] MEDS: ASPIRIN 81 MG ECTAB PO SCH (08:17)
[2018-05-14] MEDS: ATORVASTATIN 40 MG TAB PO SCH (08:17)
[2018-05-14] MEDS: INSULIN ASPART 100 UNITS/ML 3 ML PEN SC SCH ×4 (08:20→20:59)
[2018-05-14] MEDS: INSULIN GLARGINE SOLOSTAR 100 UNITS/ML 3 ML PEN SC SCH ×2 (08:21→20:58)
[2018-05-14] MEDS: ACETAMINOPHEN 325 MG TAB PO PRN ×2 (15:09→19:20)
--- NOTE | 2018-05-14 17:19 | PROGRESS NOTE ---
DATE: 05/14/2018 SUBJECTIVE: I am seeing Mr. Sanders in followup of a posteroparietal left temporal lobe infarction. His CTA of the head showed no significant stenosis. There is a developmentally diminutive vertebrobasilar system. Indeterminate pleural based nodules, right upper lobe. CTA of the neck shows approximately 50% stenosis of the bilateral internal carotids at the bulb. Echocardiography revealed no cardiac source. The patient has been in a sinus rhythm. His LDL was 158. The patient gives a history of statin intolerance. OBJECTIVE: VITAL SIGNS: His blood pressure remains mildly elevated at 150/75. 36.9, 75, 94%. GENERAL: The patient is awake and alert. NEUROLOGIC: He has some mild spontaneous word finding difficulty, difficulty with naming. He can follow a 3-step command. There is no field cut. No facial asymmetry. No asymmetric upper or lower extremity weakness. He remains mildly tearful. IMPRESSION AND PLAN: Partial left middle cerebral artery infarction, no high-grade carotid or intracranial stenosis. Continue aspirin and Plavix for 3 months and then Plavix alone. Would recommend statin therapy if the patient tolerates. I would recommend a Zio Patch as an outpatient to look for occult atrial fibrillation. Will sign off at present, recommend that the patient see myself or Kassidy Peraza in the office in 2-3 weeks. Will sign off. LUCINDA
--- NOTE | 2018-05-14 17:29 | Progress Note ---
Internal Med Progress Note Date of Service: May 14, 2018. Provider Documentation: SUBJECTIVE: Had headache earlier today, symptoms resolved after Tylenol no blurred vision Speech is fluent Denies of any weakness or paresthesia Able to ambulate independently and from OBJECTIVE: Vital Signs-as noted below Exam: General-no sign of distress Eyes-sclera nonicteric, pupils bilateral equal reactive to light extraocular muscle intact ENT-moist oral mucosa Neck-no JVD, no carotid bruit, no thyromegaly, trachea midline Lungs-clear to auscultate, no wheeze or rales Heart-regular S1-S2 Abdomen-soft nontender Extremities-[no lower extremity edema no rash or deformity Neuro-alert awake oriented 3, no motor or focal neurological deficit noted Lab data as noted below. ASSESSMENT & PLAN: Acute CVA Presented with confusions/slurred speech -CT head without abnormalities MRI of brain : Multiple small areas of acute to subacute infarction on the left cerebral hemisphere noted predominantly involving the watershed distribution of the posterior left parietal lobe and extending into posterior left temporal lobe Mild vasogenic edema No midline shift or mass-effect Appreciate input from neurology Patient will continue with aspirin Plavix dual antiplatelet for at least 3 months And continued aspirin 81 mg lifelong afterwards Patient will be continued with statin DM II: -A1c of 6.9 t -Hold home agents -SSI while in-patient -Lantus 5u BID -BSG AC HS BPH: -Continue Flomax DVT Ppx: Heparin SQ Code status: FULL DISPOSITION To be determined PT OT evaluation requested Social service consult for discharge planning Vital Signs: Date Time Temp Pulse Resp B/P (MAP) Pulse Ox O2 Delivery O2 Flow Rate FiO2 05/14/18 15:31 36.9 75 16 150/75 (100) 94 Room Air 05/14/18 11:50 36.8 82 19 122/68 (86) 94 Room Air 05/14/18 11:44 95 94 05/14/18 08:00 Room Air 05/14/18 06:55 36.9 71 18 155/83 (107) 95 Room Air 05/14/18 04:58 36.7 73 22 151/82 (105) 94 Room Air 05/14/18 00:54 36.5 71 16 145/73 (97) 92 Room Air 05/13/18 20:00 Room Air 05/13/18 19:39 36.8 70 16 149/81 (103) 98 Room Air Lab Results: Results Past 24 Hours Test 05/13/18 20:59 05/14/18 06:50 05/14/18 07:26 05/14/18 11:20 Range/Units Bedside Glucose 109 100 83 70-99 mg/dl White Blood Count 6.62 4.8-10.8 K/uL Red Blood Count 4.51 4.7-6.1 M/uL Hemoglobin 14.0 14.0-18.0 g/dL Hematocrit 41.1 42-52 % Mean Corpuscular Volume 91.1 80-100 fL Mean Corpuscular Hemoglobin 31.0 25-34 pg Mean Corpuscular Hemoglobin Concent 34.1 32-36 g/dl Platelet Count 238 130-400 K/uL Mean Platelet Volume 10.3 7.4-10.4 fL Neutrophils (%) (Auto) 70.9 % Lymphocytes (%) (Auto) 20.5 % Monocytes (%) (Auto) 6.3 % Eosinophils (%) (Auto) 1.2 % Basophils (%) (Auto) 0.3 % Neutrophils # (Auto) 4.69 1.4-6.5 K/uL Lymphocytes # (Auto) 1.36 1.2-3.4 K/uL Monocytes # (Auto) 0.42 0.11-0.59 K/uL Eosinophils # (Auto) 0.08 0-0.5 K/uL Basophils # (Auto) 0.02 0-0.2 K/uL RDW Standard Deviation 51.5 36.4-46.3 fL RDW Coefficient of Variation 15.3 11.5-14.5 % Immature Granulocyte % (Auto) 0.8 % Immature Granulocyte # (Auto) 0.05 0.00-0.02 K/uL Sodium Level 143 136-145 mmol/L Potassium Level 3.9 3.5-5.1 mmol/L Chloride Level 111 98-107 mmol/L Carbon Dioxide Level 24 21-32 mmol/L Anion Gap 8.0 3-11 mmol/L Blood Urea Nitrogen 14 7-18 mg/dl Creatinine 0.99 0.60-1.40 mg/dl Est Creatinine Clear Calc Drug Dose 61.9 ml/min Estimated GFR () 84.8 Estimated GFR (Non- 73.2 BUN/Creatinine Ratio 14.4 10-20 Random Glucose 85 70-99 mg/dl Calcium Level 8.6 8.5-10.1 mg/dl Magnesium Level 2.1 1.8-2.4 mg/dl Total Creatine Kinase 217 39-308 U/L Triglycerides Level 176 0-150 mg/dl Cholesterol Level 240 0-200 mg/dl HDL Cholesterol 47 mg/dl LDL Cholesterol, Calculated 158 mg/dl VLDL Cholesterol, Calculated 35 mg/dl Cholesterol/HDL Ratio 5.1 Test 05/14/18 16:33 Range/Units Bedside Glucose 103 70-99 mg/dl
[2018-05-15] VITALS (7 sets, daily range): BP systolic 127–153; BP diastolic 62–89; PULSE 68–84; TEMP 36.5–37; O2SAT 93–97
[2018-05-15] MEDS: HEPARIN SOD 5000 UNIT/0.5 ML CARP SQ SCH (05:47)
[2018-05-15 06:26] LABS: BASO % 0.5 %; BASO ABS # 0.03 K/uL (0-0.2); EOS % 2.1 %; EOS ABS # 0.13 K/uL (0-0.5); HEMOGLOBIN 13.6 g/dL (14.0-18.0); IG# 0.05 K/uL (0.00-0.02); LYMPH % 26.9 %; LYMPH ABS # 1.63 K/uL (1.2-3.4); MEAN CELL VOLUME 91.3 fL (80-100); MEAN CORPUSCULAR HEMOGLOBIN 29.6 pg (25-34); MEAN CORPUSCULAR HGB CONC 32.4 g/dl (32-36); MONO % 7.4 %; MONO ABS # 0.45 K/uL (0.11-0.59); NEUT % 62.3 %; NEUT ABS # 3.76 K/uL (1.4-6.5); PLATELET COUNT 232 K/uL (130-400); RED CELL DISTRIBUTION WIDTH CV 15.3 % (11.5-14.5); RED CELL DISTRIBUTION WIDTH SD 51.3 fL (36.4-46.3); WHITE BLOOD COUNT 6.05 K/uL (4.8-10.8)
[2018-05-15 06:46] LABS: CALCIUM 8.4 mg/dl (8.5-10.1); CREATININE 0.89 mg/dl (0.60-1.40); POTASSIUM 4.1 mmol/L (3.5-5.1)
[2018-05-15] MEDS: INSULIN ASPART 100 UNITS/ML 3 ML PEN SC SCH ×2 (07:41→14:06)
[2018-05-15] MEDS: INSULIN GLARGINE SOLOSTAR 100 UNITS/ML 3 ML PEN SC SCH (08:41)
[2018-05-15] MEDS: CLOPIDOGREL BISULFATE 75 MG TAB PO SCH (09:24)
[2018-05-15] MEDS: ATORVASTATIN 40 MG TAB PO SCH (09:24)
[2018-05-15] MEDS: TAMSULOSIN HCL 0.4 MG CAP PO SCH (09:25)
[2018-05-15] MEDS: ASPIRIN 81 MG ECTAB PO SCH (09:25)
[2018-05-15] MEDS ORDERED: ASPI-461 PO (11:56)
[2018-05-15] MEDS ORDERED: LPT40 PO ×2 (11:56→13:21)
[2018-05-15] MEDS ORDERED: PLV75 PO (11:56)
[2018-05-15] MEDS ORDERED: ATORVASTATIN 40 MG TAB PO ONE (13:45)
--- NOTE | 2018-05-15 14:38 | Pharmacy Progress Note ---
Pharmacist Stroke Counseling Date of Service May 15, 2018. Scope Pharmacy has been consulted to provide medication discharge counseling for this patient admitted with ischemic stroke/hemorrhagic stroke/ transient ischemic attack as per the Pharmacist Discharge Counseling for Stroke Patients Protocol. Medications on Discharge Medications Dose Route/Sig Max Daily Dose Days Date Category Lipitor (Atorvastatin Calcium) 40 Mg Tab 80 Mg PO DAILY 30 05/15/18 Rx Aspirin 81 Mg Tab 81 Mg PO QAM 30 05/15/18 Rx Clopidogrel (Clopidogrel Bisulfate) 75 Mg Tab 75 Mg PO QAM 30 05/15/18 Rx Pioglitazone Hcl 45 Mg Tab 45 Mg PO DAILY 05/13/18 Reported Precose (Acarbose) 50 Mg Tab 50 Mg PO HS 05/13/18 Reported Metformin HCl ER (Metformin HCl) 1,000 Mg Tab 1,000 Mg PO BID 05/13/18 Reported Flomax (Tamsulosin Hcl) 0.4 Mg Cap 0.4 Mg PO DAILY 05/13/18 Reported Basaglar Kwikpen (Insulin Glargine) 100 Unit/Ml Inj 14 Units HS 05/13/18 Reported Action The above medications, specifically ones for stroke treatment/prophylaxis, have been reviewed in detail with the patient and/or patient computer help desk representative(s) prior to discharge. This includes indication, common adverse reactions, drug interactions, and medication administration. Medication counseling has been employed using the teach-back method to ensure understanding. Outcome The patient and/or patient computer help desk representative(s) have demonstrated understanding of the medications. Please note, they are aware that the pharmacist will call them within 72 hours post-discharge to confirm that the appropriate medications are being taken and answer any further medication related questions the patient might have at that time. Contact information Individual to be contacted: patient Phone number: [phone] Best time to call: patient requests call on 05/17 or 05/20 (daughter getting this weekend) Patient and family expressed understanding of new medications. I stressed to the patient that dual therapy with aspirin and plavix will be for 3 months, then transition to aspirin alone. Patient advised to monitor for s/s of bleeding and report symptoms to outpatient physician. Patient aware that he needs to notify providers of antiplatelet use if procedure/surgery is planned in the future. Thank you for allowing pharmacy to be involved in the care of this patient. Please call [phone] or [phone] with any additional questions
--- NOTE | 2018-05-15 14:57 | Discharge Instructions ---
Discharge Instructions Date of Service May 15, 2018. Admission Reason for Admission: Confusion, Slurred Speech Discharge Discharge Diagnosis / Problem: ACUTE STROKE Discharge Goals Goal(s): Decrease discomfort, Improve function, Increase independence, Improve disease control, Diagnostic testing, Therapeutic intervention Activity Recommendations Activity Limitations: per Instructions/Follow-up section Shower/Bathe: no limitations Driving or Machine Use: AFTER FOLLOW UP WITH NEUROLOGY . Instructions / Follow-Up Instructions / Follow-Up HOSPITAL FOLLOW UP WITH YOUR FAMILY PHYSICIAN DR MOOSE DOUGHERTY ON 05/20 @ 2: 45 PM PLEASE TAKE THE DISCHARGE INSTRUCTION AND CHART COPY ON APPOINTMENT WITH DR DOUGHERTY NEUROLOGY FOLLOW UP : DR ELLIS BAIG ON 06/27/18 @ 11 :[address] TILL EVALUATED BY NEUROLOGY NEED TO TAKE ASPIRIN 81 MG AND PLAVIX 75 MG DAILY FOR 3 MONTHS ( TAKE AFTER MEAL ) DO NOT TAKE IN EMPTY STOMACH WILL CAUSE SERIOUS COMPLICATION OF BLEEDING IN STOMACH AFTER 3 MONTHS , STOP TAKING PLAVIX CONTINUE TO TAKE ASPIRIN 81 MG DAILY INDEFINITELY YOU ARE STARTED ON CHOLESTEROL LOWERING MEDICATION : LIPITOR 80 MG DAILY NEED TO HAVE FASTING CHOLESTEROL LEVEL CHECKED IN 6 MONTHS GOAL LDL IS LESS THAN 70 TO PREVENT FUTURE STROKE OR HEART ATTACK ( YOUR LDL 158 ) YOU NEED CARDIAC MONITORING ZIO PATCH TO ASSESS FOR HEART RHYTHM AND FOLLOW UP WITH CARDIOLOGY NEED TO HAVE ZIO PATCH /CLAIM REP ORDERED Risk Factors for Stroke: You can reduce your chances of stroke by working with your medical provider to adopt a healthy lifestyle. Some specific ways to lower your chance of stroke are: * If you are a smoker, now is the time to stop smoking cigarettes * If you are diabetic, improve the control of your blood sugars * Avoid excessive amounts of alcohol * Control high blood pressure * Lose weight if you are overweight * Be sure to lead an active lifestyle * Eat a healthy diet low in salt, cholesterol and fat You should know about other risk factors for stroke that you are unable to control. These include: * Age 55 years or older * Male gender * Certain racial groups: , or / * Family History of Stroke, Mini stroke or Heart Attack * Sickle Cell Disease Follow Up: It is important for you to keep your follow up appointments with your medical provider. Current Hospital Diet Patient's current hospital diet: AHA Diet (Heart Healthy), Diabetes Type 2 Diet Discharge Diet Recommended Diet: AHA Diet (Heart Healthy), Diabetes Type 2 Diet Pending Studies Studies pending at discharge: no Laboratory Results Hemoglobin A1c Test 05/13/18 10:26 Range/Units Estimated Average Glucose 151 mg/dl Hemoglobin A1c 6.9 H 4.5-5.6 % Lipid Panel Test 05/14/18 06:50 Range/Units Triglycerides Level 176 H 0-150 mg/dl Cholesterol Level 240 H 0-200 mg/dl HDL Cholesterol 47 mg/dl Cholesterol/HDL Ratio 5.1 LDL Cholesterol, Calculated 158 mg/dl Medical Emergencies . Who to Call and When: Medical Emergencies: Call 911 immediately if you experience any of the following warning signs and symptoms of Stroke: * Sudden numbness or weakness of the face, arm or leg, especially on one side of the body * Sudden confusion, trouble speaking or understanding * Sudden trouble seeing in one or both eyes * Sudden trouble walking, dizziness, loss of balance or coordination * Sudden severe headache with no cause Do not delay calling 911 if you experience any warning signs or symptoms of a stroke. Delay in seeking medical attention may affect what treatments can be given to you. . Non-Emergent Contact Non-Emergency issues call your: Primary Care Provider . . "Provider Documentation" section prepared by Natalie Montes. . Stroke Core Measures Reason no t-PA for Stroke: Treatment not indicated Reason no antithrom by day 2: Treatment provided - N/A Reason no antithrom at D/C: Treatment provided - N/A Reason no statin at D/C: Treatment provided - N/A Reason no anticoag w/a fib: Treatment not indicated
--- NOTE | 2018-05-15 15:34 | Discharge Summary ---
Discharge Summary Date of Service May 15, 2018. Discharge Summary Admission Date: May 13, 2018 at 12:03 Discharge Date: May 15, 2018 Discharge Disposition: Home with services Principal Diagnosis: ACUTE CVA Procedures: RESTING ECHOCARDIOGRAM 05/13/2018: The left ventricle is normal in size. There is mild concentric left ventricular hypertrophy. The basal septum is thickened and angulated consistent with sigmoid septum. Left ventricular systolic function is normal. Grade I diastolic dysfunction, (abnormal relaxation pattern). Septal motion is consistent with conduction abnormality. There is akinesis and thinning of the basal inferior posterior wall with all other wall segments arsenio normally Ejection Fraction = 50-55%. Aortic valve sclerosis mild, without significant aortic valvular stenosis. CT HEAD WITHOUT CONTRAST: 05/13/2018 No acute intracranial abnormality MRI OF BRAIN WITH AND WITHOUT CONTRAST: 05/13/2018 1. Multiple small areas of acute to subacute infarction about the left cerebral hemisphere are noted predominantly involving the watershed distribution of the posterior left parietal lobe and extending into posterior left temporal lobe. There is associated mild cytotoxic edema without significant mass-effect or midline shift No evidence of hydrocephalus, no evidence of intracranial hemorrhage 2. No abnormal enhancement 3. Mild age related atrophy with chronic microvascular ischemic changes CT ANGIOGRAM OF NECK AND HEAD WITH CONTRAST: 1. No aneurysm, dissection, high-grade stenosis or proximal branch occlusion. 2. No acute intracranial abnormality. 3. Moderate mixed plaque about the bilateral carotid bulbs causing less than 50 % luminal narrowing on the right and approximately 50% luminal narrowing on the left 4. Developmentally diminutive vertebrobasilar system with origin of the by lateral posterior cerebral arteries. 5. Indeterminate pleural-based nodules about the right upper lobe measure up to 6 mm. These findings could be further evaluated with nonemergent CT of the chest Consultations: [facility] neurology Pending Studies/Follow-Up: MAMADOU PATCH /[employer]ORAL DESIGNER SALESPERSON Medication Reconciliation New Medications: Atorvastatin (Lipitor) 40 Mg Tab 80 MG PO DAILY for 30 Days, #60 TABS 2 Refills Aspirin (Aspirin) 81 Mg Tab 81 MG PO QAM for 30 Days, #30 TAB Clopidogrel Bisulfate (Clopidogrel) 75 Mg Tab 75 MG PO QAM for 30 Days, #30 TAB 3 Refills Continued Medications: Acarbose (Precose) 50 Mg Tab 50 MG PO HS, TAB Insulin Glargine (Basaglar Kwikpen) 100 Unit/Ml Inj 14 UNITS HS Metformin HCl (Metformin HCl ER) 1,000 Mg Tab 1000 MG PO BID Pioglitazone Hcl (Pioglitazone Hcl) 45 Mg Tab 45 MG PO DAILY Tamsulosin Hcl (Flomax) 0.4 Mg Cap 0.4 MG PO DAILY, CAP Referrals At Discharge Follow up Referrals: Physician Referral - 06/27/18 with Ellis Mckeon M.D. Admission Information HPI (per Admitting provider): This is a 77yo M with a PMH of DM II and BPH who presents with confusion and altered mental status. Patient was in normal state of health this morning and commuted from [place] to [facility] without a problem. Suddenly, around 8:30 AM, patient felt confused and dizzy with slurred speech. Coworker called 911 and patient was evaluated in the ED with tele-stroke. Was initially found to have slight left-sided facial droop and right arm weakness but R arm weakness resolved. Per discussion with tele-stroke, order for tPa was discontinued and patient was given a full dose aspirin. Denies any lightheadedness, visual changes, difficulty swallowing, palpitations, chest pain , shortness of breath, motor weakness or difficulty with ambulation. Denies any personal history of stroke, heart disease or DVT/PE. Follows with Dr. Menchaca of [place]. Physical Exam (per Admitting): General Appearance: WD/WN, no apparent distress, + mild distress (tearful intermittently) Head: normocephalic, atraumatic Eyes: normal inspection, PERRL, sclerae normal ENT: normal ENT inspection, hearing grossly normal, pharynx normal (moist mucous membranes ) Neck: supple, thyroid normal, trachea midline Respiratory/Chest: chest non-tender, lungs clear, normal breath sounds, no respiratory distress, no accessory muscle use Cardiovascular: regular rate, rhythm, no murmur, normal peripheral pulses Abdomen/GI: non tender, soft, no organomegaly Extremities/Musculoskelatal: normal inspection, no calf tenderness, no pedal edema, normal range of motion Neurologic/Psych: 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 II-XII nml as tested, no motor/sensory deficits, alert , normal mood/affect, oriented x 3, + facial droop (Slight left sided facial droop ), + pertinent finding (Expressive aphasia) Skin: normal color, warm/dry, no rash Hospital Course remains very emotionally labile Breaks into crying spells during usual conversation Speech is fluent Has mild gait instability, appreciate evaluation for PT OT and speech Patient is stable to be returned home with home PT and OT Does not need any further speech therapy Patient will be discharged home today with aspirin /Plavix/added Lipitor Patient and family is concerned about muscle ache pains-side effect from statin- which patient had experienced in the past Has been on Lipitor 40 mg since admission Has not had any side effects yet Patient will be seen by his family physician on next May 20 Patient is counseled to follow up with his family physician for any episode of muscle weakness/pain or cramps PHYSICAL EXAM General-no sign of distress Eyes-sclera nonicteric, pupils bilateral equal reactive to light extraocular muscle intact ENT-moist oral mucosa Neck-no JVD, no carotid bruit, no thyromegaly, trachea midline Lungs-clear to auscultate, no wheeze or rales Heart-regular S1-S2 Abdomen-soft nontender Extremities-no lower extremity edema no rash or deformity Neuro-alert awake oriented 3, speech fluent, occasional word finding difficulty , no dysphagia, motor strength and sensory intact Psych: Very labile emotionally, having crying spells, feels embarrassed for the episodes as this is very unusual for him No delirium/or confusion noted/can does appear to be having short term memory loss Lymph nodes: No lymphadenopathy Last 8 Hrs Date Time Temp Pulse Resp B/P (MAP) Pulse Ox O2 Delivery O2 Flow Rate FiO2 05/15/18 15:29 36.6 84 20 95 Room Air 05/15/18 14:43 36.6 84 20 132/72 (92) 95 Room Air 05/15/18 11:30 36.5 78 20 139/76 (97) 97 Room Air Acute CVA Presented with confusions/slurred speech -CT head without abnormalities MRI of brain : Multiple small areas of acute to subacute infarction on the left cerebral hemisphere noted predominantly involving the watershed distribution of the posterior left parietal lobe and extending into posterior left temporal lobe Mild vasogenic edema No midline shift or mass-effect Appreciate input from neurology Patient will continue with aspirin Plavix dual antiplatelet for at least 3 months And continued aspirin 81 mg lifelong afterwards Added high intensity statin therapy-goal LDL less than 70 (LDL 158 this admission) Given the distribution of CVA-concern for embolic phenomena No arrhythmia noted on telemetry Vision will need outpatient Zio patch End of care discussed with patient's family physician Dr. Arian Menchaca Referral will be made to cardiology by family physician Hospital follow-up appointment scheduled with family physician on next Sunday Coronary artery disease Echo: There is akinesis and thinning of the basal inferior posterior wall with all other wall segments arsenio normally Patient denies of any anginal symptom Per patient's family physician patient had prior heart attack, had not been followed up with cardiology for some time Scheduled to have a cardiac stress test in the next 2 weeks Patient is discharged with aspirin and Plavix No beta-fariba added-to allow permissive hypertension in the setting of acute CVA Patient will be seen by cardiology as an outpatient for follow-up/will benefit with addition of beta-fariba and KATHRYN inhibitor Discharged on aspirin Plavix and statin DM II: Well-Controlled -A1c of 6.9 -Resumed outpatient oral meds on discharge -Continue prior Lantus dose BPH: -Continue Flomax DVT Ppx: Heparin SQ Code status: FULL DISPOSITION PT OT evaluation appreciated Patient is stable to be discharged home with outpatient PT OT Discharge home today Patient is instructed not to drive until evaluated by neurology Total time spent on discharge = 40 mins This includes examination of the patient, discharge planning, medication reconciliation, and communication with other providers. Discharge Instructions Discharge Instructions Date of Service May 15, 2018. Admission Reason for Admission: Confusion, Slurred Speech Discharge Discharge Diagnosis / Problem: ACUTE STROKE Discharge Goals Goal(s): Decrease discomfort, Improve function, Increase independence, Improve disease control, Diagnostic testing, Therapeutic intervention Activity Recommendations Activity Limitations: per Instructions/Follow-up section Shower/Bathe: no limitations Driving or Machine Use: AFTER FOLLOW UP WITH NEUROLOGY . Instructions / Follow-Up Instructions / Follow-Up HOSPITAL FOLLOW UP WITH YOUR FAMILY PHYSICIAN DR ARIAN MENCHACA ON 05/20 @ 2: 45 PM PLEASE TAKE THE DISCHARGE INSTRUCTION AND CHART COPY ON APPOINTMENT WITH DR MENCHACA NEUROLOGY FOLLOW UP : DR ELLIS BAIG ON 06/27/18 @ 11 :[address] TILL EVALUATED BY NEUROLOGY NEED TO TAKE ASPIRIN 81 MG AND PLAVIX 75 MG DAILY FOR 3 MONTHS ( TAKE AFTER MEAL ) DO NOT TAKE IN EMPTY STOMACH WILL CAUSE SERIOUS COMPLICATION OF BLEEDING IN STOMACH AFTER 3 MONTHS , STOP TAKING PLAVIX CONTINUE TO TAKE ASPIRIN 81 MG DAILY INDEFINITELY YOU ARE STARTED ON CHOLESTEROL LOWERING MEDICATION : LIPITOR 80 MG DAILY NEED TO HAVE FASTING CHOLESTEROL LEVEL CHECKED IN 6 MONTHS GOAL LDL IS LESS THAN 70 TO PREVENT FUTURE STROKE OR HEART ATTACK ( YOUR LDL 158 ) YOU NEED CARDIAC MONITORING ZIO PATCH TO ASSESS FOR HEART RHYTHM AND FOLLOW UP WITH CARDIOLOGY NEED TO HAVE ZIO PATCH /FLORAL DESIGNER SALESPERSON ORDERED Risk Factors for Stroke: You can reduce your chances of stroke by working with your medical provider to adopt a healthy lifestyle. Some specific ways to lower your chance of stroke are: * If you are a smoker, now is the time to stop smoking cigarettes * If you are diabetic, improve the control of your blood sugars * Avoid excessive amounts of alcohol * Control high blood pressure * Lose weight if you are overweight * Be sure to lead an active lifestyle * Eat a healthy diet low in salt, cholesterol and fat You should know about other risk factors for stroke that you are unable to control. These include: * Age 55 years or older * Male gender * Certain racial groups: , or / * Family History of Stroke, Mini stroke or Heart Attack * Sickle Cell Disease Follow Up: It is important for you to keep your follow up appointments with your medical provider. Current Hospital Diet Patient's current hospital diet: AHA Diet (Heart Healthy), Diabetes Type 2 Diet Discharge Diet Recommended Diet: AHA Diet (Heart Healthy), Diabetes Type 2 Diet Pending Studies Studies pending at discharge: no Laboratory Results Hemoglobin A1c Test 05/13/18 10:26 Range/Units Estimated Average Glucose 151 mg/dl Hemoglobin A1c 6.9 H 4.5-5.6 % Lipid Panel Test 05/14/18 06:50 Range/Units Triglycerides Level 176 H 0-150 mg/dl Cholesterol Level 240 H 0-200 mg/dl HDL Cholesterol 47 mg/dl Cholesterol/HDL Ratio 5.1 LDL Cholesterol, Calculated 158 mg/dl Medical Emergencies . Who to Call and When: Medical Emergencies: Call 911 immediately if you experience any of the following warning signs and symptoms of Stroke: * Sudden numbness or weakness of the face, arm or leg, especially on one side of the body * Sudden confusion, trouble speaking or understanding * Sudden trouble seeing in one or both eyes * Sudden trouble walking, dizziness, loss of balance or coordination * Sudden severe headache with no cause Do not delay calling 911 if you experience any warning signs or symptoms of a stroke. Delay in seeking medical attention may affect what treatments can be given to you. . Non-Emergent Contact Non-Emergency issues call your: Primary Care Provider . . "Provider Documentation" section prepared by Natalie Montes. . Stroke Core Measures Reason no t-PA for Stroke: Treatment not indicated Reason no antithrom by day 2: Treatment provided - N/A Reason no antithrom at D/C: Treatment provided - N/A Reason no statin at D/C: Treatment provided - N/A Reason no anticoag w/a fib: Treatment not indicated Additional Copies To Ellis Mckeon M.D.
--- NOTE | 2018-05-20 15:28 | Pharmacy Progress Note ---
Pharmacist Post D/C Phone Note Date of phone call: May 20, 2018. The patient and/or patient guest services representative(s) were unable to be reached for a follow-up phone call within the 72 hour time frame. Discharge counseling pharmacist contact information has already been provided to the patient should questions arise. Thank you for allowing us to be involved in the care of this patient.
== END 2018-05-15 16:00 | disposition home health service (06) | DRG 66 ==
LOC: C.EDB 10:17 → C.2E 12:03 → ENRESERV 12:15
PROVIDERS: ADMIT Family Medicine; ATTEND Hospitalist
DX: I63.512 Cerebral infarction due to unspecified occlusion or stenosis of left middle cerebral artery (principal); R47.01 Aphasia; G83.21 Monoplegia of upper limb affecting right dominant side; R29.810 Facial weakness; R41.0 Disorientation, unspecified; R45.86 Emotional lability; R26.81 Unsteadiness on feet; E11.9 Type 2 diabetes mellitus without complications; N40.0 Benign prostatic hyperplasia without lower urinary tract symptoms; I25.10 Atherosclerotic heart disease of native coronary artery without angina pectoris; I25.2 Old myocardial infarction; Z79.4 Long term (current) use of insulin; Z79.899 Other long term (current) drug therapy; Z88.0 Allergy status to penicillin